=== PATIENT | male | born 1985 | race Hispanic/Latino ===

== ENCOUNTER 2017-09-27 17:16 | Emergency (ER) | payer OTHER, SELFPAY ==
[2017-09-27 17:47] LABS: #Basophils 0.1 thou/uL (0.0-0.2); #Eosinphils 0.1 thou/uL (0.0-0.7); #Lymphocytes 2.9 thou/uL (1.20-3.40); #Monocytes 0.4 thou/uL (0.11-0.59); #Neutrophils 4.3 thou/uL (1.40-6.50); %Basophils 1.1 % (0.0-1.0); %Eosinophils 1.2 % (0.0-10.0); %Lymphocytes 37.5 % (21.0-51.0); %Monocytes 5.7 % (0.0-10.0); Hematocrit 48.9 % (42.0-52.0); Mean Platelet Volume 8.3 fL (7.4-10.4); Red Blood Cell (RBC) Count 5.22 mill/uL (4.70-6.10); White Blood Cell (WBC) Count 7.8 thou/uL (4.8-10.8)
[2017-09-27 18:05] LABS: ALT (SGPT) 40 U/L (8-55); AST (SGOT) 28 U/L (5-34); Alkaline Phosphatase 106 U/L (40-150); Anion Gap 13 mmol/L (10-20); BUN (Urea Nitrogen) 19 mg/dL (8.9-20.6); Bilirubin, Total 0.3 mg/dL (0.2-1.2); Calc. Creatinine Clearance 0 mL/min (70-130); Calcium 9.4 mg/dL (7.8-10.44); Carbon Dioxide 23 mmol/L (22-29); Chloride 106 mmol/L (98-107); Estimated GFR-MDRD 82; Lipase 25 U/L (8-78); Protein, Total 8.5 g/dL (6.0-8.3)
--- NOTE | 2017-09-27 18:24 | RAD ---
2 VIEWS CHEST: Date: 09/27/17 COMPARISON: 02/13/17. HISTORY: Intermittent pain to the right upper quadrant, swelling. FINDINGS/IMPRESSION: There is multilevel postoperative hardware within the mid thoracic spine. This traverses a severe mid /lower thoracic spine fracture. There is no pneumothorax, pleural fluid, focal consolidation, or alve olar edema. POS: [facility]
== END 2017-09-27 19:46 | disposition home or self-care (01) ==
LOC: ERS 17:16
DX: G90.59 Complex regional pain syndrome I of other specified site (principal); F17.210 Nicotine dependence, cigarettes, uncomplicated
CPT/HCPCS: 71020; 80053; 83690; 85025

== ENCOUNTER 2019-09-22 14:15 | Emergency (ER) | payer OTHER, SELFPAY ==
[2019-09-22 15:10] LABS: #Basophils 0.1 thou/uL (0.0-0.2); #Lymphocytes 1.3 thou/uL (1.20-3.40); #Monocytes 0.6 thou/uL (0.11-0.59); #Neutrophils 4.2 thou/uL (1.40-6.50); %Basophils 0.8 % (0.0-1.0); %Eosinophils 0.3 % (0.0-10.0); %Lymphocytes 21.5 % (21.0-51.0); %Monocytes 9.3 % (0.0-10.0); Mean Corpuscular HGB CONC 34.2 g/dL (32.0-36.0); Mean Corpuscular Volume 93.6 fL (78.0-98.0); Mean Platelet Volume 8.4 fL (7.4-10.4); Platelet Count 148 thou/uL (130-400); RBC Distribution Width 11.4 % (11.5-14.5); White Blood Cell (WBC) Count 6.2 thou/uL (4.8-10.8)
--- NOTE | 2019-09-22 15:25 | RAD ---
PORTABLE CHEST 1 VIEW: DATE: 09/22/2019. TIME: 4:09 p.m. HISTORY: Chest pain. FINDINGS: Comparison is made with the exam of 09/27/2017. The heart size is normal. The aorta is tortuous. Postop changes and metallic hardware in the thorac ic spine are again seen. No lobar consolidation, pneumothoraces, or pleural effusions are identified . IMPRESSION: No acute process. POS: [place]
[2019-09-22 15:33] LABS: ALT (SGPT) 34 U/L (8-55); AST (SGOT) 24 U/L (5-34); Albumin 4.3 g/dL (3.5-5.0); Alkaline Phosphatase 74 U/L (40-110); Anion Gap 14 mmol/L (10-20); BUN (Urea Nitrogen) 10 mg/dL (8.9-20.6); Bilirubin, Total 0.8 mg/dL (0.2-1.2); Calc. Creatinine Clearance 0 mL/min (70-130); Calcium 8.9 mg/dL (7.8-10.44); Carbon Dioxide 24 mmol/L (22-29); Chloride 103 mmol/L (98-107); Estimated GFR-MDRD Greater than 90; Globulin 3.1 g/dL (2.4-3.5); Glucose 113 mg/dL (70-105); Lipase 24 U/L (8-78); Potassium 3.8 mmol/L (3.5-5.1); Protein, Total 7.4 g/dL (6.0-8.3); Sodium 137 mmol/L (136-145)
--- NOTE | 2019-09-22 19:09 | ULT ---
RIGHT UPPER QUADRANT ULTRASOUND: 09/22/19 HISTORY: Right upper quadrant pain. FINDINGS: The liver demonstrates homogeneous echotexture without focal mass or ductal dilatation. Shadowing gal lstones are seen without gallbladder wall thickening or pericholecystic fluid. The common duct measur es 4 mm in diameter. The right kidney is normal. The pancreas is not well visualized due to overlying bowel gas. IMPRESSION: Cholelithiasis. POS: [place]
[2019-09-22 19:53] LABS: Troponin I 0.012 ng/mL (< 0.028)
== END 2019-09-22 21:39 | disposition home or self-care (01) ==
LOC: ERS 14:15
DX: K80.80 Other cholelithiasis without obstruction (principal); R07.9 Chest pain, unspecified; F17.210 Nicotine dependence, cigarettes, uncomplicated
CPT/HCPCS: 36415; 71045; 76705; 80053; 83690; 84484; 85025; 87804; 93005

== ENCOUNTER 2019-12-17 19:56 | Emergency (ER) | payer SELFPAY ==
[2019-12-17] MEDS ORDERED: diphenhydrAMINE 50 MG/ML VIAL ONE (20:46)
[2019-12-17] MEDS ORDERED: Famotidine/PF 20 mg/2ml Vial ONE (20:46)
[2019-12-17] MEDS ORDERED: methylPREDNISolone Sod Succ/PF 125 MG/2 ML VIAL ONE (20:46)
== END 2019-12-17 21:44 | disposition home or self-care (01) ==
LOC: ERS 19:56
DX: L50.0 Allergic urticaria (principal); F17.210 Nicotine dependence, cigarettes, uncomplicated
CPT/HCPCS: 96361; 96374; 96375; J1200; J2930; S0028

== ENCOUNTER 2023-03-01 18:17 | Emergency (ER) | payer SELFPAY ==
[2023-03-01] MEDS ORDERED: Famotidine 20 MG TAB ONE ×2 (19:11→19:12)
[2023-03-01] MEDS ORDERED: methylPREDNISolone Sod Succ/PF 125 MG/2 ML VIAL ONE (19:11)
== END 2023-03-01 19:22 | disposition home or self-care (01) ==
LOC: ERS 18:17
DX: L50.9 Urticaria, unspecified (principal); F17.210 Nicotine dependence, cigarettes, uncomplicated
CPT/HCPCS: 96372; 99282; J2930

== ENCOUNTER 2023-10-03 22:28 | Emergency (ER) | payer SELFPAY ==
[2023-10-03] MEDS ORDERED: EPINEPHrine 1 MG/ML VIAL ONE (22:39)
[2023-10-03] MEDS ORDERED: diphenhydrAMINE 50 MG/ML VIAL ONE (22:45)
[2023-10-03] MEDS ORDERED: Famotidine/PF 20 mg/2ml Vial ONE (22:46)
[2023-10-03] MEDS ORDERED: methylPREDNISolone Sod Succ/PF 125 MG/2 ML VIAL ONE (22:46)
[2023-10-03] MEDS ORDERED: Ipratropium/Albuterol 3 ML NEB ONE (22:54)
[2023-10-03 23:13] LABS: Hematocrit 52.1 % (42.0-52.0); Hemoglobin 17.8 g/dL (14.0-18.0); Manual Diff?? YES; Mean Corpuscular HGB CONC 34.2 g/dL (32.0-36.0); Mean Corpuscular Hemoglobin 31.4 pg (27.0-31.0); Mean Platelet Volume 10.6 fL (7.4-10.4); Platelet Count 236 10x3/uL (130-400); RBC Distribution Width 12.4 % (11.5-14.5); Red Blood Cell (RBC) Count 5.66 mill/uL (4.70-6.10); White Blood Cell (WBC) Count 9.9 10x3/uL (4.8-10.8)
[2023-10-03 23:22] LABS: Delete Auto Diff?? YES
[2023-10-03 23:39] LABS: ALT (SGPT) 29 U/L (8-55); AST (SGOT) 32 U/L (5-34); Albumin 3.8 g/dL (3.5-5.0); Alkaline Phosphatase 85 U/L (40-110); Anion Gap 21 mmol/L (10-20); BUN (Urea Nitrogen) 12 mg/dL (8.9-20.6); Bilirubin, Total 0.3 mg/dL (0.2-1.2); Calc. Creatinine Clearance 0 mL/min (70-130); Calcium 8.8 mg/dL (7.8-10.44); Carbon Dioxide 15 mmol/L (22-29); Chloride 106 mmol/L (98-107); Estimated GFR 100; Globulin 3.9 g/dL (2.4-3.5); Glucose 199 mg/dL (70-105); Potassium 4.1 mmol/L (3.5-5.1); Protein, Total 7.7 g/dL (6.0-8.3); Sodium 138 mmol/L (136-145); Troponin I Less than 0.010 ng/mL (< 0.028)
[2023-10-04 00:15] LABS: Band 1 % (5-11); Eosinophils 3 % (0-10); Lymphocytes 70 % (21-51); Monocytes 2 % (0-10); Neutrophil 24 % (42-75)
== END 2023-10-04 04:59 | disposition home or self-care (01) ==
LOC: ERS 22:28
DX: T45.0X5A Adverse effect of antiallergic and antiemetic drugs, initial encounter (principal)
CPT/HCPCS: 36415; 71045; 80053; 84484; 85025; 93005; 94640; 96372; 96374; 96375; J0171; J1200; J2930; J7620; S0028

== ENCOUNTER 2023-11-03 19:09 | Emergency (ER) | payer SELFPAY ==
[2023-11-03] MEDS ORDERED: Cyclobenzaprine 10 MG TAB ONE (20:56)
[2023-11-03] MEDS ORDERED: Ibuprofen 200 MG TAB ONE (20:56)
== END 2023-11-03 21:05 | disposition home or self-care (01) ==
LOC: ERS 19:09
DX: M79.671 Pain in right foot (principal); M79.672 Pain in left foot; W17.89XA Other fall from one level to another, initial encounter; Y99.0 Civilian activity done for income or pay
CPT/HCPCS: 99283

== ENCOUNTER 2024-09-04 20:02 | Emergency (ER) | payer SELFPAY ==
[2024-09-04] MEDS ORDERED: predniSONE 20 MG TAB ONE (20:15)
[2024-09-04] MEDS ORDERED: Famotidine 20 MG TAB ONE (20:15)
[2024-09-04] MEDS ORDERED: Dexamethasone 10 MG/ML VIAL ONE (20:46)
== END 2024-09-04 21:00 | disposition home or self-care (01) ==
LOC: ERS 20:02
DX: T78.40XA Allergy, unspecified, initial encounter (principal)
CPT/HCPCS: 96372; 99282; J1100; J7512